=== PATIENT | male | born 1995 | race Caucasian/White ===

== ENCOUNTER 2022-06-21 08:00 | Outpatient (CLI) | payer OTHER ==
[2022-06-21 13:53] LABS: BILIRUBIN,URINE NEGATIVE (NEGATIVE); GLUCOSE, URINE (UA) NEGATIVE (NEGATIVE); KETONES,URINE (UA) NEGATIVE (NEGATIVE); LEUKOCYTE ESTERASE, URINE NEGATIVE (NEGATIVE); NITRITE,URINE NEGATIVE (NEGATIVE); OCCULT BLOOD,URINE NEGATIVE (NEGATIVE); PROTEIN,URINE NEGATIVE (NEGATIVE); UROBILINOGEN,URINE 0.2 (NORMAL) E.U./dL (NORMAL)
[2022-06-21 13:55] LABS: CLARITY,URINE CLEAR (CLEAR)
[2022-06-21 14:12] LABS: RBC,URINE 0-5 /HPF (0-5); WBC,URINE 0-3 /HPF (0-3)
[2022-06-21 14:13] LABS: BACTERIA,URINE Few /HPF (None Seen); SQUAMOUS EPITHELIAL CELL,UR NONE SEEN (<= Few)
[2022-06-21 19:39] LABS: NEISSERIA GONORRHOEAE DNA NEGATIVE (NEGATIVE)
[2022-06-21 19:53] LABS: CHLAMYDIA TRACHOMATIS DNA POSITIVE (NEGATIVE)
== END 2022-06-21 23:59 | disposition home or self-care (01) ==
LOC: LAB.N 08:00
PROVIDERS: ATTEND Nurse Practitioner
DX: R30.0 Dysuria (principal)
CPT/HCPCS: 81001; 87086; 87491; 87591; 87661

== ENCOUNTER 2022-09-03 08:00 | Outpatient (CLI) | payer OTHER ==
[2022-09-04 00:11] LABS: NEISSERIA GONORRHOEAE DNA NEGATIVE (NEGATIVE)
[2022-09-04 00:28] LABS: CHLAMYDIA TRACHOMATIS DNA POSITIVE (NEGATIVE)
== END 2022-09-03 23:59 | disposition home or self-care (01) ==
LOC: LAB.N 08:00
PROVIDERS: ATTEND Registered Nurse
DX: R30.0 Dysuria (principal)
CPT/HCPCS: 87491; 87591; 87661

== ENCOUNTER 2022-09-17 08:00 | Outpatient (CLI) | payer OTHER ==
[2022-09-17 20:09] LABS: CHLAMYDIA TRACHOMATIS DNA NEGATIVE (NEGATIVE); NEISSERIA GONORRHOEAE DNA NEGATIVE (NEGATIVE)
== END 2022-09-17 23:59 | disposition home or self-care (01) ==
LOC: LAB.N 08:00
PROVIDERS: ATTEND Physician Assistant
DX: A56.2 Chlamydial infection of genitourinary tract, unspecified (principal)
CPT/HCPCS: 87491; 87591; 87661